=== PATIENT | female | born 1975 | race Caucasian/White ===

== ENCOUNTER 2017-08-06 16:34 | Outpatient (CLI) | payer OTHER | END 2017-08-06 16:58 | disposition home or self-care (01) | LOC: LAB 16:34 | DX: R50.9 Fever, unspecified (principal) ==

== ENCOUNTER → 2017-08-06 | Outpatient (CLI) | payer OTHER ==
[~2017-08-06] MED LIST: ASA81 MG; FIORICET 50-301 EACH; FIORICET PO; GILTUSS TR TAB1 EACH PO; HYZAAR 100-251 EACH PO; LANTUS SOL100 UNIT/1 SUBCUTANEO; LANTUS SOLOSTAR3 ML; LEVAQUIN750 MG PO; LOSARTAN-HCTZ1 EAC1; METFORMIN HCL1000 M1; METFORMIN HCL1000 M1 PO; SIMVASTATIN40 MG; VICTOZA 2-0.6 MG/0.1; ZITHROMAX200 MG PO; ZOCOR40 MG PO; ZYRTEC10 M3 PO; ZYRTEC10 MG PO
== END | disposition home or self-care (01) ==
LOC: PPHC 15:44
DX: B34.9 Viral infection, unspecified (principal)

== ENCOUNTER 2017-08-24 20:08 | Emergency (ER) | payer OTHER ==
[~2017-08-24] VITALS: Ht 165.1 cm; Wt 104.3 kg
== END 2017-08-24 22:13 | disposition home or self-care (01) ==
LOC: ER 20:08
DX: M54.31 Sciatica, right side (principal)

== ENCOUNTER 2017-08-27 12:27 | Emergency (ER) | payer OTHER ==
[~2017-08-27] VITALS: Ht 165.1 cm; Wt 104.3 kg
== END 2017-08-27 17:54 | disposition home or self-care (01) ==
LOC: ER 12:27
DX: M79.661 Pain in right lower leg (principal); M54.31 Sciatica, right side; E11.9 Type 2 diabetes mellitus without complications

== ENCOUNTER → 2017-09-16 | Emergency (ER) | payer OTHER ==
[~2017-09-16] VITALS: Ht 165.1 cm; Wt 104.3 kg
== END | disposition home or self-care (01) ==
LOC: ER 16:17
DX: K29.70 Gastritis, unspecified, without bleeding (principal); R53.1 Weakness; E11.9 Type 2 diabetes mellitus without complications